=== PATIENT | male | born 1975 | race Caucasian/White ===

== ENCOUNTER 2022-09-12 06:29 | Day surgery (SDC) | payer OTHER, SELFPAY ==
[2022-09-04 14:10] VITALS: BMI 27.8
[2022-09-05 14:46] VITALS: BMI 27.2
[2022-09-12 06:40] VITALS: BP 129/86; PULSE 98; RESP 16; TEMP 36.4; O2SAT 100
--- NOTE | 2022-09-12 06:56 | P.PNAN_ITS ---
Anes - Initial Pre Proc Eval Procedure: Operation Date: 09/12/22 08:00 Proposed Procedures p Screening Colonoscopy - Tyson Evans DO Date/Time: 09/12/22 06:56 Surgeon: Tyson Evans DO Pre Op Diagnosis: Neoplasm Screening Patient Data Age: 47 Gender: M Height: 1.8 m Weight: 87 kg Allergies Allergy/AdvReac Type Severity Reaction Status Date / Time No Known Allergies Allergy Verified 09/12/22 06:46 Home Medications Medication Instructions Recorded Confirmed Type No Home Medications 07/31/22 09/12/22 History Patient hx anesthesia problems: none Family hx anesthesia problems: none Results Review: All pre-operative results and documents have been reviewed as part of the pre- operative evaluation. COUNTS INCLUDE 234 BEDS AT THE [facility] Past Medical History Medical History Acute lateral meniscus tear of left knee Surgical History Surgical History Status post arthroscopy of left knee (09/18/19) Family History Family History Other Family history of malignant neoplasm Social History Social History Social History: quit 10 years ago, 1 PPD x 10 years Smoking status: Former smoker Alcohol intake: current Substance use: never Substance use type: does not use Living arrangements: with family Gender identity (if verbalized by the patient): Male Spiritual care concerns: No Anes - Eval Final PreProcedure Day of Procedure 09/12/22 06:56 Patient weight: overweight Heart: regular rate and rhythm Lungs: clear to auscultation Airway: Mallampati scale class 1 Neurological: alert and oriented Last oral intake: >/= 8 hours ASA classification: II Emergent: no Anesthetic plan: proceed Anesthesia type and monitoring: general GIVS and standard monitoring Results Review: All pre-operative results and documents have been reviewed as part of the pre- operative evaluation. Informed Consent: The patient's anesthetic plan and its attendant risks and benefits were discussed with the patient/family/POA. Questions were solicited and answers provided to the satisfaction of the patient/family/POA.
[2022-09-12] MEDS: LACTATED RINGERS 1,000 ML 150 ML IV CONT (07:03)
--- NOTE | 2022-09-12 07:27 | PM.IMHP ---
H&P: HPI History of Present Illness Date/Time: 09/12/22 07:27 Chief Complaint: fam hx colon polyps Narrative: 47 yo man presents for colonoscopy. He has fam hx of colon polyps. He states his father had many polyps removed. He denies any hematochezia or melena. He has never had a colonoscopy before. Review of Systems Review of Systems: All systems reviewed & are unremarkable except as noted in HPI and below Constitutional: Constitutional: Denies chills, Denies fever(s), Denies headache(s) and Denies weight loss Eyes: Eyes: Denies change in vision ENT: Denies dizziness, Denies headache(s), Denies neck mass and Denies throat swelling Cardiovascular: Cardiovascular: Denies chest pain, Denies lightheadedness and Denies dyspnea Respiratory: Respiratory: Denies cough, Denies dyspnea and Denies wheezing Gastrointestinal: Gastrointestinal: Denies abdominal pain, Denies change in bowel habits, Denies nausea and Denies vomiting Genitourinary: Genitourinary: Denies hematuria and Denies dysuria Musculoskeletal: Musculoskeletal: Reports as per HPI Integumentary/Breasts: Skin/Breast: Reports as per HPI Neurologic: Denies dizziness and Denies headache(s) Allergic/Immunologic: Allergic/Immunologic: Denies throat swelling and Denies wheezing PMF Past Medical History Medical History Acute lateral meniscus tear of left knee Surgical History Surgical History Status post arthroscopy of left knee (09/18/19) Family History Family History Other Family history of malignant neoplasm Social History Social History Social History: quit 10 years ago, 1 PPD x 10 years Smoking status: Former smoker Alcohol intake: current Substance use: never Substance use type: does not use Living arrangements: with family Gender identity (if verbalized by the patient): Male Spiritual care concerns: No Meds Home Medications and Allergies Home Medications Medication Instructions Recorded Confirmed Type No Home Medications 07/31/22 09/12/22 History Allergies Allergy/AdvReac Type Severity Reaction Status Date / Time No Known Allergies Allergy Verified 09/12/22 06:46 Vital Signs Vital Signs - 24 hr 09/12/22 06:40 Temperature 36.4 C Pulse Rate 98 Respiratory Rate 16 Blood Pressure 129/86 Pulse Oximetry 100 Oxygen Delivery Room Air Exam Const: General: no acute distress and alert Orientation/consciousness: patient oriented x3 HENMT: Head: normocephalic and atraumatic Ears: hearing grossly normal bilaterally Face/Nose/Sinus: Normal nares present Mouth: Yes Normal oral and palatal mucosa present Eyes: Periorbital: periorbital findings normal Sclera: sclerae normal EOM: EOMs intact bilaterally Neck: Neck: normal visual inspection, no lymphadenopathy and trachea midline Chest: Chest palpation & inspection: normal inspection of the chest Resp: Effort & Inspection: normal respiratory effort Auscultation: clear to auscultation bilaterally Cardio: Jugular venous distension: no JVD Rate: regular rate Rhythm: regular rhythm Heart sounds: S1 normal heart sound present and S2 normal heart sound present Peripheral pulses: Peripheral pulses 2+ throughout GI: Inspection: normal to inspection GI Palp: Yes Soft to palpation, No Tenderness to palpation present (GI), No Guarding due to palpation present (GI) and No Rebound tenderness present Percussion: Yes normal to percussion Auscultation: normal bowel sounds : General: Yes no CVA tenderness Back/Spine/Pelvis: Back: no CVA tenderness Neuro: General: patient oriented x3, no focal motor deficits and CN's II-XI intact bilaterally Cognition (Neuro): normal cognition Speech: normal speech Motor exam (neuro): 5/5 motor strength present
[2022-09-12 08:44] VITALS: BP 106/74; PULSE 82; RESP 16; O2SAT 98
[2022-09-12 08:48] VITALS: BP 121/80; PULSE 74; RESP 16; O2SAT 100
--- NOTE | 2022-09-12 08:56 | SUR.PHASEII ---
PT AWAKE AND ALERT. EATING AND DRINKING. SPOUSE AT BEDSIDE. DENIES PAIN.
[2022-09-12 08:58] VITALS: BP 116/79; PULSE 77; RESP 16; O2SAT 100
--- NOTE | 2022-09-12 09:58 | WPDANESPN ---
Anes - Prog Note Post-Op Date/Time: 09/12/22 09:58 Cardiovascular status: normal Respiratory status: normal Airway patency: baseline Mental status: baseline Post-Op hydration status: normal Vital Signs: Last Vital Signs Temp 36.4 C 09/12/22 06:40 Pulse 77 09/12/22 08:58 Resp 16 09/12/22 08:58 BP 116/79 09/12/22 08:58 Pulse Ox 100 09/12/22 08:58 O2 Del Method Room Air 09/12/22 08:58 Pain Score (VAS): 0 I/O: Intake & Output 09/11/22 09/12/22 09/12/22 23:59 07:59 15:59 Intake Total 100 Balance 100 Post-procedural complaints: none Patient Feedback: Patient satisfied with anesthetic care. Other Findings: Patient vital signs back to baseline. Patient denies nausea and vomiting. Patient's pain under control. Patient OK for discharge.
== END 2022-09-12 09:15 | disposition home or self-care (01) ==
PROVIDERS: PCP Family Medicine; Visit Provider Surgery
PROC: 0DJD8ZZ Inspection of Lower Intestinal Tract, Via Natural or Artificial Opening Endoscopic (ICD-10-PCS; CPT 45378; principal; 2022-09-12 08:00)
DX: Z12.11 Encounter for screening for malignant neoplasm of colon (principal)
CPT/HCPCS: 45378

== ENCOUNTER 2023-07-30 15:06 | Outpatient (CLI) | payer OTHER, SELFPAY ==
--- NOTE | ~2023-07-30 | XR_ITS ---
EXAMINATION: XR sacroiliac joints min 3V DATE: 07/30/2023 15:34 INDICATION: Sacroiliac joint pain. Low back pain. TECHNIQUE: 3 views of the sacroiliac joints on 4 radiographs were obtained. COMPARISON: None. FINDINGS: Bone alignment is normal. No fracture. There is mild left sacroiliac joint osteoarthritis. IMPRESSION: 1. Mild left sacroiliac joint osteoarthritis. No evidence of inflammatory arthropathy. Reviewed, dictated and finalized at location E. IMPRESSION: 1. Mild left sacroiliac joint osteoarthritis. No evidence of inflammatory arthr opathy.
--- NOTE | ~2023-07-30 | XR_ITS ---
EXAMINATION: XR lumbar spine 2-3V DATE: 07/30/2023 15:34 INDICATION: Low back pain. TECHNIQUE: 3 views of the lumbar spine were obtained. COMPARISON: None. FINDINGS: There is 5 degrees levocurvature of thoracolumbar spine. There is mild chronic anterior wed ging of T12 and L1 vertebral bodies. There is mildly decreased disc height at L2-L3. There are endpla te osteophytes at multiple levels. There is multilevel mild facet joint osteoarthritis. IMPRESSION: 1. Mild lumbar spondylosis. Reviewed, dictated and finalized at location E. IMPRESSION: 1. Mild lumbar spondylosis.
== END 2023-07-30 15:07 | disposition home or self-care (01) ==
LOC: CHSIMG 15:09
PROVIDERS: PCP Internal Medicine; Visit Provider Internal Medicine
DX: M54.50 Low back pain, unspecified (principal); M43.06 Spondylolysis, lumbar region; M47.898 Other spondylosis, sacral and sacrococcygeal region
CPT/HCPCS: 72100; 72202

== ENCOUNTER 2025-05-06 16:31 | Outpatient (CLI) | payer OTHER, SELFPAY ==
--- NOTE | ~2025-05-06 | XR_ITS ---
XR knee LT min 4V 05/06/2025 16:58 Indication: Left knee pain Procedure: 4 views left knee Comparison: 06/15/2019 Findings: Significant progression of severe tricompartment osteoarthritis of the left knee. Small maegan nt effusion. No acute fracture or traumatic malalignment. Impression: 1: Severe tricompartment osteoarthritis. Reviewed, dictated and finalized at location A. Impression: 1: Severe tricompartment osteoarthritis.
--- OUTSIDE RECORDS SUMMARY | 2025-05-06 16:38 | XMS_ITS | Clinical Summary ---
Author Organization [facility] Address [facility] [place] [address] Care Team Providers Care Leadership Program Internship Name Role Phone Unavailable Primary Care Provider Unavailabl e Social History Tobacco Use Types Packs/Day Years Used Date Smoking Tobacco: Never Assessed Sex and Gender Information Value Date Recorded Sex Assigned at Not on file Legal Sex Male 5:16 PM CDT Gender Identity Not on file Sexual Orientation Not on file Plan of Treatment Health Maintenance Due Date Last Done Comments Colorectal Cancer Screening Colonoscopy (10 Years) 1974 Annual Physical 1977 Hepatitis C 1992 DTaP, Tdap and Td Vaccines ( 1 - Tdap) 1993 Hepatitis B Vaccines (1 of 3 - 19+ 3-dose series) 1993 Pneumococcal Vaccine: 50+ Ye ars (1 of 1 - PCV) 2024 Zoster Vaccines (1 of 2) 2024 COVID-19 Vaccine ( - 2023-2 5 season) 2024 Meningococcal B Vaccine Aged Out No l onger eligible based on patient's age to complete this topic Meningococcal Vaccine Aged Out No nenita gabe eligible based on patient's age to complete this topic RSV Immunizations Under 20 Months Aged Out No longer eligible based on patient's age to complete this topic
== END 2025-05-06 16:32 | disposition home or self-care (01) ==
LOC: CHSIMG 16:36
PROVIDERS: PCP Internal Medicine; Visit Provider Internal Medicine
DX: M25.562 Pain in left knee (principal); M17.12 Unilateral primary osteoarthritis, left knee
CPT/HCPCS: 73564

== ENCOUNTER 2025-05-24 14:38 | Outpatient (CLI) | payer OTHER, SELFPAY ==
--- NOTE | ~2025-05-24 | MR_ITS ---
MRI of the left knee Clinical history: Pain Technique: Coronal proton density and proton density-weighted images, sagittal proton-density and T2 fat-sat images, and axial proton-density fat-saturated images were acquired. Findings: There is mucoid degenerative signal of the ACL, which is hyperintense with intact fibers. PCL intact. Medial collateral ligament and the lateral collateral ligament complex are intact. Popliteus tendon is intact. There is complex tearing versus postmeniscectomy change of the anterior horn and body of the lateral meniscus, which are largely absent or markedly diminutive. No medial meniscal tear evident. There is focal high-grade chondromalacia of the medial patellar facet. There is diffuse high-grade chondral malacia on both sides of the lateral compartment. There are extensive osteophytes of the lateral joint line and patellofemoral compartment. There are mild medial compartment osteophytes. Extensor mechanism is intact. Moderate joint effusion present. There are 2 loose bodies in the posterior aspect of the joint, measuring 1 cm in diameter each (sagittal images 14, 16). No Murray's cyst. Impression: Complex tear versus postmeniscectomy change of the anterior horn and body lateral meniscus, which are largely absent and/or markedly diminutive. Mucoid degenerative signal of the ACL. Severe degenerative change of the lateral compartment. Moderate degenerative change of the patellofemoral compartment. Mild degenerative change of the medial compartment. 2 posterior loose bodies, as detailed above. Moderate joint effusion. Reviewed, dictated and finalized at [facility]. Impression: Complex tear versus postmeniscectomy change of the anterior horn and body later al meniscus, which are largely absent and/or markedly diminutive. Mucoid degenerative signal of the ACL. Severe degenerative change of the lateral compartment. Moderate degenerative ch rukhsana of the patellofemoral compartment. Mild degenerative change of the medial compartment. 2 posterior loose bodies, as detailed above. Moderate joint effusion.
== END 2025-05-24 14:39 | disposition home or self-care (01) ==
PROVIDERS: PCP Internal Medicine; Visit Provider Internal Medicine
DX: M23.242 Derangement of anterior horn of lateral meniscus due to old tear or injury, left knee (principal); M23.241 Derangement of anterior horn of lateral meniscus due to old tear or injury, right knee
CPT/HCPCS: 73721